=== PATIENT | male | born 1990 | race Hispanic/Latino ===

== ENCOUNTER 2018-07-11 06:46 | Day surgery (SDC) | payer OTHER ==
[2018-07-10 11:57] VITALS: BMI 34.9
[2018-07-11 07:34] LABS: #Basophils 0.1 thou/uL (0.0-0.2); #Eosinphils 0.1 thou/uL (0.0-0.7); #Monocytes 0.6 thou/uL (0.11-0.59); #Neutrophils 6.6 thou/uL (1.40-6.50); %Eosinophils 1.2 % (0.0-10.0); %Lymphocytes 28.5 % (21.0-51.0); %Neutrophils 63.4 % (42.0-75.0); Hemoglobin 17.4 g/dL (14.0-18.0); Mean Corpuscular HGB CONC 33.3 g/dL (32.0-36.0); Mean Corpuscular Hemoglobin 29.8 pg (27.0-31.0); Mean Corpuscular Volume 89.4 fL (78.0-98.0); Mean Platelet Volume 5.8 fL (7.4-10.4); Platelet Count 377 thou/uL (130-400); RBC Distribution Width 11.8 % (11.5-14.5); Red Blood Cell (RBC) Count 5.85 mill/uL (4.70-6.10); White Blood Cell (WBC) Count 10.4 thou/uL (4.8-10.8)
[2018-07-11] MEDS ORDERED: CEFAZOLIN/Water 2 GM/20 ML SYRINGE ONE (08:51)
[2018-07-11] MEDS ORDERED: Midazolam HCl 2 mg/2 ml Vial ONE (09:18)
[2018-07-11] MEDS ORDERED: Fentanyl 100 MCG/2 ML VIAL ONE ×2 (09:18→10:49)
[2018-07-11] MEDS ORDERED: Promethazine HCl 25 MG/ML VIAL ONE (09:18)
[2018-07-11] MEDS ORDERED: Bupivacaine/Epinephrine 0.25% 30 ML VIAL ONE (09:38)
[2018-07-11] MEDS ORDERED: Ondansetron HCl/PF 4 MG/2 ML Vial ONE (15:16)
[2018-07-11] MEDS ORDERED: Ketorolac Tromethamine 30 MG/ML VIAL ONE (15:16)
[2018-07-11] MEDS ORDERED: Dexamethasone 20 MG/5 ML VIAL ONE (15:16)
[2018-07-11] MEDS ORDERED: Glycopyrrolate 0.2 MG/ML 5 ML SYRINGE ONE (15:16)
[2018-07-11] MEDS ORDERED: PROPOFOL 200 MG/20 ML VIAL ONE (15:16)
[2018-07-11] MEDS ORDERED: Lidocaine 1% PF 5 ML VIAL ONE (15:16)
--- NOTE | 2018-07-11 15:40 | OP ---
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 SURGEON: Norbert Acuna M.D. PROCEDURES PERFORMED: Diagnostic laparoscopy, excision of preperitoneal fat and excision of torsed p reperitoneal epiploica. INDICATIONS: This is a 28-year-old male who had a fairly sudden onset of right lower quadrant pain w hen he was lifting. He had an ultrasound done [place]. Pictures of which was on his phone. He show ed them to me that suggested a probable spigelian hernia. He is obese and this was not palpable. FINDINGS: There was about a 1 cm epiploica of the preperitoneal fat dangling the head torsed right w here he had pointed to the pain. There was no hernia found. PROCEDURE IN DETAIL: After informed consent was obtained, the patient was taken to the operating geraldo m and given general endotracheal anesthesia. He was placed in supine position. His abdomen was prep ped and draped in usual fashion. Local anesthesia infiltrated subcutaneously and deep. A 12 mm inci dianna was performed left lateral abdomen. Veress needle inserted. Drop test performed. Pneumoperito neum was created to a volume of 2 liters of carbon dioxide. Utilizing a bladeless 12 mm trocar and 0 degree laparoscope, direct visual entry into the abdominal cavity was performed. Pneumoperitoneum w as created to a pressure of 15 mmHg. Zero degree laparoscope inserted under direct vision, two 5-mm ports were placed subcostal. He had an access of preperitoneal fat overlying the area where we had m arked preoperatively where his pain was located. I did not see an obvious hernia, but could not rule out one under this preperitoneal fat. So there was, however, right at that same location about a 1 cm dangling epiploica that had a very narrow base that appeared as though it had been intermittently torsion. The preperitoneal fat attached to this epiploica was excised from the anterior abdominal wa ll in order to visualize and be sure there was no hernia located there. This was removed utilizing t he LigaSure. Once the abdominal wall was completely exposed, there was evidence of no hernia there. The inguinal area was inspected. There was no inguinal hernia or femoral hernia. The appendix was found to have appeared normal. The gallbladder appeared normal. There is no evidence of any kind of inflammatory bowel disease or internal hernias. There is no intestinal dilatation or obstruction. The specimen was retrieved and sent to pathology for further analysis. The epiploic fat was marked wi th a suture. Hemostasis was assured. The trocars and retractors removed. The skin closed with inte rrupted 4-0 Rapide. Dermabond applied. The patient tolerated the procedure well and was transferred to recovery in good condition. Sponge and needle count verified correct x2.
== END 2018-07-11 12:45 | disposition home or self-care (01) ==
LOC: SDC 06:46
PROVIDERS: ATTEND Surgery
PROC: 0DBW4ZZ Excision of Peritoneum, Percutaneous Endoscopic Approach (ICD-10-PCS; principal; 2018-07-11)
DX: K63.89 Other specified diseases of intestine (principal); F17.200 Nicotine dependence, unspecified, uncomplicated
CPT/HCPCS: 36415; 85025; 88304; 96374; J1100; J1885; J2001; J2250; J2405; J2550; J2704; J3010